=== PATIENT | female | born 1955 | race Caucasian/White ===

== ENCOUNTER 2024-05-30 17:52 | Emergency (ER) | payer OTHER ==
[2024-05-30 17:59] VITALS: BP 144/74; PULSE 79; RESP 18; TEMP 99.2; BMI 25.4
[2024-05-30] MEDS ORDERED: MECLIZINE HCL 25 MG TABLET (FP) ONE (20:48)
[2024-05-30] MEDS: MECLIZINE HCL 25 MG TABLET (FP) PO ONE (20:54)
[2024-05-30 21:14] LABS: PH,URINE 8.5 (5.0-8.0); URINE APPEARANCE CLEAR; URINE BILIRUBIN NEGATIVE (NEGATIVE); URINE COLOR YELLOW; URINE GLUCOSE (UA) NEGATIVE (NEGATIVE); URINE KETONE TRACE (NEGATIVE); URINE LEUK ESTERASE NEGATIVE (NEGATIVE); URINE NITRITE NEGATIVE (NEGATIVE); URINE PROTEIN NEGATIVE (NEGATIVE); URINE UROBILINOGEN 0.2 mg/dL (0.2-1.0)
[2024-05-30 21:17] LABS: BASO % 0.6 % (0-2.0); EOS % 0.7 % (0-4.5); HEMATOCRIT 38.3 % (32.4-45.2); HEMOGLOBIN 12.7 GM/dL (10.7-15.3); LYMPH % 35.9 % (8-40); MCH 29.7 pg (25.7-33.7); MCHC 33.1 g/dl (32.0-36.0); MEAN CELL VOLUME 89.8 fl (80-96); MEAN PLT VOLUME 8.9 fl (7.5-11.1); MONO % 8.6 % (3.8-10.2); NEUT % 54.2 % (42.8-82.8); PLATELET COUNT 270 10^3/uL (134-434); RBC 4.26 M/mm3 (3.60-5.2); RDW 13.4 % (11.6-15.6); WHITE BLOOD COUNT 6.2 K/mm3 (4.0-10.0)
[2024-05-30] MEDS: SODIUM CHLORIDE 0.9% 500 ML INFUS.BAG IV ONE (21:26)
[2024-05-30 21:31] LABS: INR 1.06 (0.83-1.09); PROTHROMBIN TIME (PATIENT) 12.2 SEC (9.7-13.0)
[2024-05-30 21:33] LABS: ACTIVATED PTT 30.4 SECONDS (25.2-36.5)
[2024-05-30 22:03] LABS: ALBUMIN 4.3 g/dl (3.4-5.0); BLOOD UREA NITROGEN 7.6 mg/dL (7-18); CALCIUM 10.3 mg/dL (8.5-10.1)
[2024-05-30 22:12] LABS: BILIRUBIN,TOTAL 0.5 mg/dL (0.2-1); CREATININE 0.5 mg/dL (0.55-1.3); TOT PROT 8.1 g/dl (6.4-8.2)
[2024-05-30 22:21] LABS: POTASSIUM 4.1 mmol/L (3.5-5.1)
== END 2024-05-31 04:02 | disposition home or self-care (01) ==
LOC: JER 17:52
DX: E86.0 Dehydration (principal); R42 Dizziness and giddiness; R11.2 Nausea with vomiting, unspecified
CPT/HCPCS: 36415; 70450-TC; 71045-TC-FY; 80053; 81003; 84484; 85025; 85610; 85730; 87086; 93005; 93010; 99285-25